=== PATIENT | female | born 1970 | race Caucasian/White ===

== ENCOUNTER → 2018-05-18 | Outpatient (CLI) | payer OTHER ==
[~2018-05-18] MED LIST: HYDR-2758 PO
[2018-05-18 14:04] LABS: BASO % 1 % (0-3); EOS # 0.1 x10^3/uL (0.0-0.7); EOS % 1 % (0-3); HEMATOCRIT 35.3 % (36.0-47.0); LYMPH # 2.7 x10^3/uL (1.0-4.8); LYMPH % 26 % (24-48); MEAN CORPUSCULAR HEMOGLOBIN 29 pg (25-35); MEAN CORPUSCULAR HGB CONC 34 g/dL (31-37); MEAN CORPUSCULAR VOLUME 84 fL (79-100); MONO # 0.5 x10^3/uL (0.0-1.1); MONO % 5 % (0-9); NEUT % 68 % (31-73); PLATELET COUNT 398 x10^3/uL (140-400); RED CELL DISTRIBUTION WIDTH 13.5 % (11.5-14.5); WHITE BLOOD COUNT 10.4 x10^3/uL (4.0-11.0)
[2018-05-18 14:08] LABS: BILIRUBIN,URINE NEGATIVE (NEG); CLARITY,URINE CLEAR; COLOR,URINE YELLOW; NITRITE,URINE NEGATIVE (NEG); PROTEIN,URINE NEGATIVE (NEG-TRACE); UROBILINOGEN,URINE 0.2 mg/dL (0.2 mg/dL)
[2018-05-18 14:17] LABS: ALBUMIN 3.3 g/dL (3.4-5.0); CALCIUM 9.1 mg/dL (8.5-10.1); CREATININE 1.1 mg/dL (0.6-1.0); GFR 53.2; TOTAL BILIRUBIN 0.5 mg/dL (0.2-1.0); TOTAL PROTEIN 6.5 g/dL (6.4-8.2)
[2018-05-18 14:20] LABS: BACTERIA,URINE FEW /HPF (0-FEW); HYALINE CASTS, URINE FEW /HPF; RBC,URINE 0 /HPF (0-2); SQUAMOUS EPITHELIAL CELL,UR MANY /LPF
== END | disposition home or self-care (01) ==
LOC: SURGPAT 13:27
PROVIDERS: ATTEND Obstetrics & Gynecology
DX: Z01.818 Encounter for other preprocedural examination (principal)
CPT/HCPCS: 36415; 80053; 81001; 85025

== ENCOUNTER 2018-05-24 06:08 | Observation (INO) | payer OTHER ==
[~2018-05-24] VITALS: Ht 152.4 cm; Wt 83.5 kg
[~2018-05-24 06:08] MED LIST changes: +BUPIVACAINE-EPI 0.25%-1:200000 50 ML VIAL. ONE; +ESTROGENS, CONJ VAGINAL CREAM 30GM TUBE. ONE; -HYDR-2758 PO; +METHYLENE BLUE 1% 10 ML VIAL. ONE
[2018-05-24] MEDS ORDERED: LIDOCAINE 2% 100 MG/5 ML SYRINGE. ONE (06:11)
[2018-05-24] MEDS ORDERED: HYDROmorphone 2 MG/ML VIAL IV PRN (07:00)
[2018-05-24] MEDS ORDERED: ONDANSETRON PF 4 MG/2 ML VIAL. IV PRN ×2 (07:00→10:00)
[2018-05-24] MEDS ORDERED: MORPHINE SULFATE 2 MG/ML VIAL. IV PRN ×2 (07:00→10:00)
[2018-05-24] MEDS ORDERED: PROCHLORPERAZINE 10 MG/2 ML VIAL. IV PRN (07:00)
[2018-05-24] MEDS ORDERED: LIDOCAINE 1% PF 2 ML VIAL. ID PRN (07:00)
[2018-05-24] MEDS ORDERED: fentaNYL PF VIAL 100 MCG/2 ML VIAL IV PRN (07:00)
[2018-05-24] MEDS ORDERED: IV RINGERS,LACTATED 1000ML 1,000 ML IV SCH (07:00)
[2018-05-24] MEDS ORDERED: PROPOFOL 20 ML IV ONE (07:02)
[2018-05-24] MEDS ORDERED: MIDAZOLAM HCL/PF 2 MG/2 ML VIAL. ONE (07:02)
[2018-05-24] MEDS ORDERED: ROCURONIUM 50 MG/5 ML VIAL. ONE (07:02)
[2018-05-24] MEDS ORDERED: fentaNYL PF VIAL 250 MCG/5 ML VIAL ONE (07:03)
[2018-05-24] MEDS ORDERED: SCOPOLAMINE 1.5MG PATCH. TD ONE (07:22)
[2018-05-24] MEDS ORDERED: DEXAMETHASONE SOD PHOS 20 MG/5 ML VIAL. ONE (07:34)
[2018-05-24] MEDS ORDERED: ONDANSETRON PF 4 MG/2 ML VIAL. ONE (07:34)
[2018-05-24 08:21] LABS: U PREG PATIENT NEGATIVE (NEG)
[2018-05-24] MEDS ORDERED: NEOSTIGMINE METHYLSULFATE 5 MG/5 ML SYRINGE. ONE (08:44)
[2018-05-24] MEDS ORDERED: GLYCOPYRROLATE 1 MG/5 ML VIAL. ONE (08:44)
--- NOTE | 2018-05-24 09:54 | PDOC ---
BRIEF OPERATIVE NOTE Date: May 24, 2018 Pre-Op Diagnosis menorrhagia, endometrial mass seen on sonogram Post-Op Diagnosis same Procedure Performed LAVH with bilateral salpingectomy Surgeon Dr. Brii Campos Clay Worker Noa Stuart,community program assistant Anesthesiologist Dr. Abraham Anesthesia Type: General Blood Loss 200cc IV Fluid see anesthesia records Urine Output 180cc clear via ceja Specimens Obtained cervix, uterus, bilateral tubes Findings enlarged uterus, anterior bladder adhesions, desc colon adhesion on left side; normal bilateral tubes and ovaries Complications none Operative Note [id number] BRII CAMPOS MD May 24, 2018 09:54
[2018-05-24] MEDS ORDERED: HYDROcodone/APAP 5/325MG 1 TAB TABLET PO PRN (10:00)
[2018-05-24] MEDS ORDERED: oxyCODONE/APAP 5/325 1 TAB TABLET PO PRN (10:00)
[2018-05-24] MEDS ORDERED: ZOLPIDEM 5 MG TABLET. PO PRN (10:00)
[2018-05-24] MEDS ORDERED: NALOXONE 0.4 MG/ML VIAL. IV PRN (10:00)
[2018-05-24] MEDS ORDERED: MAGNESIUM HYDROXIDE 2,400 MG/30 ML ORAL.SUSP. PO PRN (10:00)
[2018-05-24] MEDS ORDERED: SIMETHICONE 80 MG TAB.CHEW PO PRN (10:00)
[2018-05-24] MEDS ORDERED: 0.9 % SODIUM CHLORIDE 10 ML DISP.SYRIN. IV PRN (10:00)
[2018-05-24] MEDS ORDERED: diphenhydrAMINE 50 MG/ML VIAL IV PRN (10:00)
[2018-05-24] MEDS ORDERED: LACTULOSE 20 GM/30 ML SOLUTION. PO PRN (10:00)
[2018-05-24] MEDS ORDERED: CALCIUM CARBONATE 500 MG TAB.CHEW PO PRN (10:00)
[2018-05-24] MEDS ORDERED: MAG HYDROX/ALUMINUM HYD/SIMETH 30 ML ORAL.SUSP PO PRN (10:00)
[2018-05-24] MEDS ORDERED: diphenhydrAMINE HCL 25 MG CAPSULE PO PRN (10:00)
[2018-05-24] MEDS ORDERED: fentaNYL PF VIAL 100 MCG/2 ML VIAL ONE (10:14)
[2018-05-24] MEDS: fentaNYL PF VIAL 100 MCG/2 ML VIAL IV PRN ×2 (10:18→10:42)
[2018-05-24] MEDS ORDERED: MORPHINE SULFATE 2 MG/ML VIAL. ONE (11:06)
[2018-05-24 11:27] VITALS: BP 158/82
[2018-05-24 11:45] VITALS: BP 146/81
[2018-05-24 12:05] VITALS: BP 158/82
--- NOTE | 2018-05-24 12:15 | OP ---
DATE OF SURGERY: 05/24/2018 PREOPERATIVE DIAGNOSES: Menorrhagia, endometrial mass on sonogram with negative biopsy in the office. POSTOPERATIVE DIAGNOSES: Menorrhagia, endometrial mass on sonogram with negative biopsy in the office. PROCEDURE: Laparoscopic assisted vaginal hysterectomy with bilateral salpingectomy. SURGEON: Nara Campos MD. BARREL LATHE OPERATOR OUTSIDE: Noa Stuart RN first assist. ANESTHESIA: General. ANESTHESIOLOGIST: Dr. Abraham. ESTIMATED BLOOD LOSS: 200 mL. URINE OUTPUT: 180 mL, clear via Maxwell catheter. INTRAVENOUS FLUIDS: Please see anesthesia records for this. FINDINGS: An enlarged uterus, anterior bladder adhesions from her previous sections. The descending colon was adhesed to the left sidewall that was left alone. It was also kind of adhesed just down on the left side of her uterosacral ligament, but passed out on the sidewall in the left pelvis that was left alone also, normal bilateral tubes and ovaries. COMPLICATIONS: None. DESCRIPTION OF PROCEDURE: This patient was taken to the operating room where general anesthesia was placed. [facility] The patient's abdomen and vagina were prepped and draped in the normal sterile fashion and a Maxwell catheter had been inserted under sterile technique. Upon my arrival, a timeout was performed. Once everyone agreed, a bivalve speculum was placed in the patient's vagina. A single-tooth tenaculum was used to grasp the anterior lip of the cervix. A 10 mL of 0.25% Marcaine with epinephrine was used to circumferentially inject around the cervix for both hemodissection and hemostatic purposes later. At this point, the Valtchev uterine manipulator was placed through the endocervical os, locked on that single tooth tenaculum and the bivalve speculum was then removed. Top gloves were discarded and changed. Attention was then turned to the abdomen, where a supraumbilical skin incision was made with the scalpel. A curved Debora was used to dissect through the subcuticular layer to the fascia. The 5-mm Visiport was used to directly enter the abdominal cavity. Opening patient pressure was 4-5 mmHg. Carbon dioxide gas was used to then appropriately insufflate the abdominal cavity to maintain a pressure of 15 mmHg. The patient was placed in Trendelenburg position. Right and left lower quadrant ports were placed under direct visualization after transilluminating the abdomen finding an area clear of vasculature making a small incision and placing an atraumatic 5-mm port in under direct visualization on both sides. Once they were in, 3 mL of air was used to insufflate the cuff. The camera was moved to one of the lateral ports looked at the umbilical port to make sure it was in and it was. When it was clear, so that cuff was also insufflated. The gas was moved to one of the side ports and then, Smoke Evac was hooked up to the other one. At this point, the [place] was used to grasp the left tube and ovary. They looked normal, so elevating the tube going between the tube and ovary, leaving the normal ovary, using the LigaSure cauterizing through the mesosalpinx, then on the left uterine ovarian pedicle and then through the left round ligament, freeing up the entire left side. This was done exactly the same on the right side, elevating the right tube and ovary. Right ovary was normal, so going below the tube above the ovary with the LigaSure through the mesosalpinx crossing the right uterine ovarian pedicle and then the right round ligament as well. At this point, the bladder flap was worked on sharply, trying to take it down. There were some adhesions here. I went very high and tried to peel it down. I did not want to go low. Some of it peeled down, especially on the right side, I was able to get it down pretty good. There was a thick band that remained on the left side that I could not get. The right side was down, so I was able to get the uterines on the right side and go down to the uterosacral ligaments on the right side very easily. The left side I still had that thick band. I was able to get it down. Once I got the right side down, I was able to even get it down to the midline. There was just a tiny thick band left on the left side as like I said that I was able to go posteriorly to then get the posterior leaf and go down and hug the cervix, got the uterines and down to the level of the uterosacrals on this side as well. I did not go anteriorly where that adhesion was, but I was able to go on the posterior leaf and see the cervix very clearly and stay right on it. Once I did that, I decided to go vaginally and try to get the remainder of the bladder from below, so everything was removed. The single tooth and Valtchev were removed. The weighted speculum was placed in the patient's vagina. Thyroid Elizabet clamps were placed on the anterior and posterior lips of the cervix respectively. A scalpel was used to make a circumferential incision in the cervix. An open Ray-Mony 4 x 4 was used to gently push up the anterior bladder peritoneum and it slid up very well. At this point, the cervix was elevated and the posterior cul-de-sac was sharply entered with the Angulo scissors and a #0 Vicryl stitch was used to try to secure the posterior peritoneum to the vaginal cuff. However, I was not able to completely get it, but I went ahead and tagged it with a curved Debora, cut the needle off and then, I removed the short weighted speculum and replaced it with the long weighted Bernie speculum in the posterior cul-de-sac. Curved Willian clamps x 2 were placed on the patient's left uterosacral ligament where they were doubly clamped with curved Heaneys, cut with Angulo scissors and suture ligated x 2 with 0 Vicryl. After tying them twice, second one was taken through the vaginal cuff securing uterosacral ligament to the vaginal cuff and it was tagged with a straight Debora clamp and the needle was cut and passed off. This was done exactly the same on the patient's right side, double clamping the uterosacrals with curved Willian's, cutting with Angulo scissors and suture ligating x 2 with 0 Vicryl and taking the second one through the vaginal cuff and tagging it with a straight Debora clamp. Once this was done on the patient's left side, I was able to see up from the uterosacral and make sure I was in the anterior cul-de-sac and the anterior peritoneum and I was able to pass a right angle clamp around the remaining pedicle on the left side. The vaginal LigaSure was used to cauterize and cut the remaining pedicle. Then, I was able to get my finger all the way around, that entire left side was free below low taking it across and getting that right angle clamp around the pedicle on the patient's right side now and again using the vaginal LigaSure to cauterize and cut. At this point, it felt like everything was free, but I put a towel clip on the posterior uterus and it had to be wedged out as it was a large uterus through a vagina that had had 2 previous cesareans. No vaginal , so it was a tight fit, but once I was able to wedge it out, there was a small band to the left side that I was not able to get down laparoscopically still attached high on the uterus from her scar, but I was able to peel it off within a 4 x 4 and watch it peel off. The cervix, uterus, bilateral tubes were delivered in toto. I did look for the anterior bladder peritoneum, but it was so high, I was not able to grab it, so I grabbed some of the peritoneal fat and just to help me looking at something to close the peritoneum. I did examine the pedicles. They were dry, so I took a 2-0 Vicryl through that anterior peritoneal fat of the bladder and then through the left uterosacral ligament, I was able to get the posterior peritoneum, which I then took to the cuff and the right uterosacral ligament and I tied the 2-0 Vicryl closing the peritoneum in a pursestring like fashion. Once this was done, the right and left uterosacral tags were clipped and the cuff was closed in an anterior to posterior running locked fashion with a full length 2-0 Vicryl and it was tied to that posterior cuff tag. Once this was done, I used a sponge stick to examine the vaginal cuff. It was completely hemostatic, everything looked good, so all instruments were removed. All the bottom counts were correct x 2. All gloves were discarded and changed at this point. A second look from above revealed hemostasis. Copious irrigation revealed hemostasis. There was slight just friable from that posterior cuff area where I had not gotten the posterior peritoneum and went to the cuff, so I made sure to spray this with Tisseel very well, but the anterior bladder peritoneum and the cuff and the ovarian pedicles, the ovaries that were left, all looked dry and good and there was copious clear irrigation. The right and left pericolic gutters were clear as well. So after irrigation and placing the Tisseel over that friable posterior area, watching it making sure it did not well up anymore and it did not, I released gas from all 3 of the little cuff on the trocars and watched the right lower quadrant port come out under direct visualization, it was hemostatic; looked at the cuff again, was hemostatic; watched the left one came out under visualization, it was hemostatic. Gas was released from the umbilical port. All 3 port sites were closed with 4-0 nylon at the skin and injected with a total of 10 mL of 0.25% Marcaine with epinephrine. Once this was done, the procedure was ended. The patient was awakened from anesthesia. Her Maxwell was removed and she was brought to recovery room in stable condition. NARA CAMPOS MD DR: ANNA/jayashree JOB#: [id number] / [id number]
[2018-05-24 16:00] VITALS: BP 121/76
[2018-05-24] MEDS ORDERED: HYDR-2758 PO (17:38)
--- NOTE | 2018-05-29 16:08 | PATHOLOGY ---
[facility] Accession Number: [id number] . 01 Material submitted: . UTERUS AND BILATERAL TUBES . 01 Clinical history: . Endometrial mass, menorrhagia . 02 Diagnosis: Uterus and attached bilateral fallopian tubes, laparoscopic assisted vaginal hysterectomy with bilateral salpingectomy: - Adenomyosis, uterine corpus, with myometrial hypertrophy (uterine weight 161 grams). - Mild chronic cervicitis with focal squamous metaplasia. - Slightly disordered proliferative endometrium. - Status post bilateral tubal ligation with presence of falope rings - Congestion of bilateral fallopian tubes. - Cystic Walthard rest and small paratubal cyst of right fallopian tube. [facility]/05/29/2018 . 02 Comment: There is no atypia or evidence of malignancy. (JPM:pit 05/29/2018) . 02 Electronically signed: . Hardik Burgos MD, Pathologist NPI- [id number] . 01 Gross description: . The specimen is received in formalin, labeled "Sanam Call, uterus and bilateral tubes". Received is a 161 g, 9.6 x 6.5 x 5.4 cm uterus with attached cervix and attached fallopian tubes, weighing 2 g each. The uterine serosa is pink-salcedo in appearance with a slight amount of adhesions on the posterior aspect, as well as an area of disruption measuring 4.1 x 3.1 cm. The 0.4 cm cervical os is surrounded by severely disrupted, loosely attached pale salcedo, smooth ectocervical mucosa. The uterus is oriented using the peritoneal reflection and the anterior paracervical area is inked black. The uterus is opened laterally to reveal a pale salcedo endocervical canal measuring 3.0 cm in length. The endometrial cavity is triangular measuring 5.2 cm in length by 3.4 cm in width. The endometrium is pale salcedo, glistening to shaggy in appearance and measures 0.1 cm in thickness. No masses or lesions are noted grossly within the endometrial cavity. Serial sectioning reveals a salcedo-pink, trabeculated myometrium measuring up to 2.8 cm in thickness displaying a slight amount of adenomyosis. . The left fimbriated fallopian tube measures 3.9 cm in length by 0.8 cm in diameter and has a single ligation ring present near the proximal aspect. The serosal surface is inked black. Sectioning reveals a patent lumen, and the fallopian tube appears otherwise grossly unremarkable. . The right fimbriated fallopian tube measures 3.5 cm in length by up to 0.6 cm in diameter and has two ligation rings present near the proximal aspect. The serosal surface displays several attached paratubal cysts ranging in size from 0.1 to 0.3 cm. Sectioning reveals a patent lumen, and the fallopian tube appears otherwise grossly unremarkable. The specimen is submitted representatively as follows: . A1 12:00 cervix A2 6:00 cervix A3 serosal adhesions A4 instruments sales representative section from serosal disruption A5 anterior endomyometrium A6 posterior endomyometrium A7 instruments sales representative sections from each fallopian tube, differentially inked. (CAA; 05/25/2018) QAC/QAC . 02 Pathologist provided ICD-10: N80.0, N72, N85.9, N83.8 . 02 CPT . 848131 Performed at: 01 [facility] [address], [place] [id number] MD Jesus Ramirez MD Phone: [phone] Performed at: 02 [facility] [address], [place] [id number] MD Hardik Burgos MD Phone: [phone]
== END 2018-05-24 17:30 | disposition home or self-care (01) ==
LOC: SURG 06:08 → EDUNIT# 07:30 → 3 NORTH 10:00
PROVIDERS: ADMIT Obstetrics & Gynecology; ATTEND Obstetrics & Gynecology
DX: N85.2 Hypertrophy of uterus (principal); N92.0 Excessive and frequent menstruation with regular cycle; N72 Inflammatory disease of cervix uteri; N83.8 Other noninflammatory disorders of ovary, fallopian tube and broad ligament; Z98.891 History of uterine scar from previous surgery
CPT/HCPCS: 36415; 58552; 81025; 86850; 86900; 86901; 88307; G0378; G0379; J0690; J1100; J2250; J2270; J2704; J2710; J3010; J3490; J7030; J7120; A7015; J2405; Q9968